=== PATIENT | female | born 1965 | race Caucasian/White ===

== ENCOUNTER → 2016-10-12 10:49 | Outpatient (CLI) | payer MEDICAID ==
[2016-10-12 11:41] LABS: HEMATOCRIT 35.9 % (36.0-48.0); HEMOGLOBIN 12.5 g/dL (12-16); LYMPHOCYTES 41.1 % (15-50); MCH 30.8 pg (26.0-34.0); MCHC 34.8 g/dL (31.0-37.0); MCV 88.4 fL (80.0-100.0); MEAN PLATELET VOLUME 11.2 fL (7.4-10.4); NEUTROPHILS 47.2 % (40-80); PLATELET COUNT 256 10x3/uL (130-400); RBC 4.06 10x6/uL (4.00-5.40); RDW 11.4 % (11.5-14.5); WBC 4.9 10x3/uL (4.8-10.8)
[2016-10-12 11:48] LABS: ALBUMIN 4.1 g/dL (3.4-5.0); ALKALINE PHOSPHATASE 165 U/L (46-116); ALT (SGPT) 27 U/L (10-68); BILIRUBIN - TOTAL 0.44 mg/dL (0.2-1.3); CALC OSMOLALITY 279 mosm/kg (275-300); CALCIUM 9.7 mg/dL (8.5-10.1); CARBON DIOXIDE 29.4 mmol/L (21.0-32.0); CHLORIDE - SERUM 103 mmol/L (98-107); CHOL - HDL RATIO 3.5 ratio (2.3-4.1); CHOLESTEROL, TOTAL 198 mg/dL (0-200); CREATININE - SERUM 0.8 mg/dL (0.6-1.3); GLUCOSE 97 mg/dL (74-106); HDL CHOLESTEROL 57 mg/dL (32-96); LDL CHOLESTEROL 127 mg/dL (0-100); LDL-HDL RATIO 2.2 ratio (1.5-3.5); POTASSIUM - SERUM 3.8 mmol/L (3.5-5.1); PROTEIN - SERUM 7.7 g/dL (6.4-8.2); SODIUM 140 mmol/L (136-145); THYROID STIMULATING HORMONE 0.02 uIU/mL (0.36-3.74); TRIGLYCERIDE 74 mg/dL (30-200); UREA NITROGEN 16 mg/dL (7-18); eGFR NON AFRICAN AMERICAN 80 mL/min (90-120)
== END | disposition home or self-care (01) ==
LOC: D.LAB 10:00
PROVIDERS: Family Medicine
DX: I10 Essential (primary) hypertension (principal); Z00.00 Encounter for general adult medical examination without abnormal findings; E03.9 Hypothyroidism, unspecified; E78.5 Hyperlipidemia, unspecified

== ENCOUNTER → 2016-11-01 08:46 | Outpatient (CLI) | payer MEDICAID | END | disposition home or self-care (01) | LOC: D.LAB 08:45 | DX: I10 Essential (primary) hypertension (principal); E03.9 Hypothyroidism, unspecified; E78.5 Hyperlipidemia, unspecified ==

== ENCOUNTER → 2017-08-21 11:14 | Outpatient (CLI) | payer MEDICAID ==
[2017-08-23 06:13] LABS: ENDOMYSIAL ANTIBODY IGA Negative (Negative)
[2017-08-23 13:16] LABS: ANTIGLIADIN IGA 3 units (0-19); ANTIGLIADIN IGG 5 units (0-19)
== END | disposition home or self-care (01) ==
LOC: D.LAB 10:15
PROVIDERS: Internal Medicine Gastroenterology
DX: D72.820 Lymphocytosis (symptomatic) (principal)

== ENCOUNTER → 2018-06-28 07:49 | Outpatient (CLI) | payer MEDICAID ==
[2018-06-28 08:56] LABS: ALBUMIN 3.9 g/dL (3.4-5.0); BILIRUBIN - DIRECT 0.13 mg/dL (0.00-0.30); BILIRUBIN - INDIRECT 0.31 mg/dL (0.00-1.00); BILIRUBIN - TOTAL 0.44 mg/dL (0.2-1.3); PROTEIN - SERUM 7.9 g/dL (6.4-8.2)
== END | disposition home or self-care (01) ==
LOC: D.US 07:30 → D.NM 08:30
PROVIDERS: Internal Medicine Gastroenterology
DX: R10.11 Right upper quadrant pain (principal); R11.0 Nausea

== ENCOUNTER → 2018-12-30 08:01 | Outpatient (CLI) | payer MEDICAID ==
[2018-12-30 08:59] LABS: ALBUMIN 3.9 g/dL (3.4-5.0); BILIRUBIN - DIRECT 0.08 mg/dL (0.00-0.30); BILIRUBIN - INDIRECT 0.23 mg/dL (0.00-1.00); BILIRUBIN - TOTAL 0.31 mg/dL (0.2-1.3); PROTEIN - SERUM 7.2 g/dL (6.4-8.2)
== END | disposition home or self-care (01) ==
LOC: D.US 08:01
PROVIDERS: ATTEND Internal Medicine Gastroenterology
DX: K76.0 Fatty (change of) liver, not elsewhere classified (principal)

== ENCOUNTER → 2019-01-13 10:30 | Outpatient (CLI) | payer MEDICAID ==
[2019-01-14 08:15] LABS: HEPATITIS C ANTIBODY <0.1 S/CO RAT (0.0-0.9)
[2019-01-15 14:11] LABS: ANA REFLEX - DIRECT Negative (Negative)
[2019-01-15 16:10] LABS: MITOCHONDRIAL ANTIBODY <20.0 Units (0.0-20.0); SMOOTH MUSCLE ABS (ACTIN) 17 Units (0-19)
== END | disposition home or self-care (01) ==
LOC: D.LAB 10:30
PROVIDERS: ATTEND Internal Medicine Gastroenterology
DX: K76.0 Fatty (change of) liver, not elsewhere classified (principal); R94.5 Abnormal results of liver function studies; R10.13 Epigastric pain; K59.09 Other constipation

== ENCOUNTER 2019-11-03 08:02 | Day surgery (SDC) | payer MEDICAID ==
[~2019-11-03] VITALS: Ht 157.5 cm; Wt 85.7 kg
--- NOTE | ~2019-11-03 | HP ---
PATIENT: MEGHA INIGUEZ MEDICAL RECORD: [id number] ACCOUNT: [id number] LOCATION:[facility] : [id number] ADMISSION DATE: 11/03/19 PCP: SUSSY MURCIA MD HISTORY AND PHYSICAL EXAMINATION HISTORY OF PRESENT ILLNESS: Megha is a 54-year-old female. She has sleep apnea and is on CPAP. She has had persistent problems with nasal obstruction and chronic rhinosinusitis. She is being admitted for septoplasty and sinus surgery. PAST MEDICAL HISTORY: Includes ulcers, hypertension, reactive airway disease, reflux, hypothyroidism, sleep apnea. PAST SURGICAL HISTORY: Includes a pelvic fracture, ectopic . SOCIAL HISTORY: She is not a smoker. CURRENT MEDICATIONS: Include Fosamax, Carafate, Pepcid, Flonase, hydrochlorothiazide, insulin, levothyroxine, Meloxicam, methocarbamol, Singulair, Protonix, ProAir, allopurinol, sumatriptan. PHYSICAL EXAMINATION: GENERAL: She is a good historian. FACE: Normal. EYES: Sclerae and conjunctivae are normal. EARS: Canals and TMs are normal. NOSE: Septal deviation, large turbinates. No mass, polyps or drainage. ORAL CAVITY AND OROPHARYNX: Tongue protrudes in midline. Pharynx is normal. NECK: No masses, no adenopathy. CHEST: Clear. CARDIOVASCULAR: Regular rate and rhythm, no murmur. EXTREMITIES: Normal. DIAGNOSTIC DATA: CT shows occlusion of right ostiomeatal complex, mucosal edema in the right sphenoid. IMPRESSION: Nasal obstruction, sleep apnea, septal deviation, turbinate hypertrophy and chronic sinusitis. PLAN: Septoplasty, bilateral inferior turbinate reduction, bilateral middle meatal antrostomies, right sphenoidotomy, right ethmoidectomy. 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
--- NOTE | ~2019-11-03 | OP ---
PATIENT NAME: MEGHA INIGUEZ MEDICAL RECORD: [id number] :65 LOCATION:[facility] ADMISSION DATE: SURGEON: MELA HUERTA MD DATE OF OPERATION: 11/03/2019 PREOPERATIVE DIAGNOSES: Chronic sinusitis, nasal obstruction, septal deviation, and turbinate hypertrophy. POSTOPERATIVE DIAGNOSES: Chronic sinusitis, nasal obstruction, septal deviation, and turbinate hypertrophy. PROCEDURES: Septoplasty, right sphenoidotomy, right anterior ethmoidectomy, bilateral middle meatal antrostomy, and bilateral inferior turbinate reduction. SURGEON: Mela Huerta MD ANESTHESIA: General orotracheal. BLOOD LOSS: 2 cc. SPECIMENS: Cultures from right maxillary sinus, tissue from the right anterior ethmoids and right lateral nasal wall and inferior turbinates. COMPLICATIONS: None. NASAL PACKING: Trammell splints bilaterally. COMPLICATIONS: None. DISPOSITION: Recovery stable. PROCEDURE NOTE: She was brought to operating room and placed in supine position, sedated and intubated by anesthesia. The table was turned 90 degrees. Head drape was applied and she was positioned for sinus surgery, prepped and draped in usual fashion. Both sides of the nose had been decongested with Afrin preoperatively. Using a headlight and nasal speculum, the anterior septum, floor of the nose inferior turbinates and root of middle turbinate were injected bilaterally with a total of less than 2 mL of 1% lidocaine with 1:100,000 epinephrine with a 1-1/2 inch 27-gauge needle and then 3 Afrin pledgets were placed in each side of the nose. After waiting for decongestion, all the Afrin pledgets on the right side were removed. The nose was examined with a 0-degree scope inferior turbinate was large, but normal middle meatus. The middle turbinate was really laterally, I could not really see in the middle meatus, superior meatus was normal. Nasal vault was normal. The nasopharynx was all normal. I could not see the sphenoid ostia directly. [place] was used to outfracture the inferior turbinate and gently lateralize the middle turbinate a little bit as well. The nose were again the 0-degree scope and see the sphenoid ostia was vertical and slit-like. A 2-mm Kerrison punch was inserted and facing inferiorly to take a bite directly inferiorly. This allowed better visualization, I could see the sphenoid and then another bite and then a small bite were taken inferomedially and inferiorly, which opened up the sinus very well. The 0-degree scope was inserted directly into the sphenoid sinus. It was completely clear and very large and normal. No drainage was noted. No mucosal edema, but really look like a normal sphenoid sinus. There was no bleeding there. I backed out of there, medialize the middle turbinate and then took down OPERATIVE REPORT [id number] MEGHA INIGUEZ MEETA the anterior ethmoids. There was mucosal thickening and polypoid changes. This was all sent for path but really no obvious infection. Then, the uncinate was fractured anteriorly. A curved olive tip suction was inserted in the maxillary sinus. Backbiter and a straight biter used to open up that ostia and was visualized with a 30-degree scope and it was edematous and inflamed, but again no obvious purulence, there was not flow, some saline was injected into the sinus with a curved olive tip suction and then that was all suctioned out into a trap and sent for cultures. The sinus was then irrigated repeatedly as was the ethmoids and the sphenoid with saline and then the left side was addressed and the middle turbinate was gently medialized and a curved olive tip suction was inserted, opened up that sinus pretty easily just with the olive tip suction and then irrigated it out and it opened up nicely. The rest of the nasal cavity exam on the left side was normal. Then, a left-sided Tony incision was made. Ipsilateral mucoperichondrial flap was elevated. Septal cartilaginous spur into the floor of the nose on the left side was removed. The bony portion was fractured off and the spur was bone fracture off and removed as well as a bony spur posteriorly inferiorly as well. With that the septum relaxed to the midline. Some relaxing incisions were made in the cartilage and the Tony incision was closed with interrupted 4-0 chromic. Both inferior turbinates were medialized with a freer. A [place] was used to take down the inferior redundant portion. Suction cautery stopped any bleeding and they were both outfractured with a [place] elevator. The nasopharynx was suctioned. The nose was examined carefully. There was really not much bleeding at all. Everything was clean and dry. The right maxillary sinus was irrigated one more time and then some mupirocin ointment was placed in the right anterior ethmoid cavity and the maxillary sinus with a large curved olive tip suction and then Trammell splints were placed bilaterally. Some mupirocin ointment and sutured to the anterior membranous septum with a 2-0 Prolene on a Axel needle. The pharynx was suctioned. The eyes were examined and normal. She was awakened, extubated, and transported to recovery in good condition. No complications. TRANSINT:[id number] Voice Confirmation ID: [id number] DOCUMENT ID: [id number] MELA HUERTA MD CC: [id number] DICTATION DATE: 11/03/19 1320 [facility] [employer] ADVISOR: 11/03/19 2258 [facility] 11/03/19 [place] [id number] [place] [address]
[2019-11-03 08:25] LABS: MCH 30.4 pg (26.0-34.0); MCHC 33.3 g/dL (31.0-37.0); MCV 91.1 fL (80.0-100.0); MEAN PLATELET VOLUME 10.5 fL (7.4-10.4); RBC 4.28 10x6/uL (4.00-5.40); RDW 12.5 % (11.5-14.5); WBC 5.2 10x3/uL (4.8-10.8)
[2019-11-03 08:32] LABS: CALC OSMOLALITY 282 mosm/kg (275-300); CALCIUM 9.7 mg/dL (8.5-10.1); CHLORIDE - SERUM 103 mmol/L (98-107); CREATININE - SERUM 0.8 mg/dL (0.6-1.3); GLUCOSE 114 mg/dL (74-106); POTASSIUM - SERUM 3.5 mmol/L (3.5-5.1); SODIUM 141 mmol/L (136-145); UREA NITROGEN 15 mg/dL (7-18); eGFR NON AFRICAN AMERICAN 79 mL/min (90-120)
[2019-11-03 09:53] VITALS: BP 121/59; Ht 157.5 cm; Wt 85.7 kg
--- NOTE | 2019-11-03 10:16 | NUR ---
NASAL SPRAY SENT TO OR-TAPED ON PT'S CHART
--- NOTE | 2019-11-03 14:36 | NUR ---
DC INSTRUCTIONS GIVEN TO PT. STATE UNDERSTANDING.
--- NOTE | 2019-11-03 15:23 | NUR ---
PT STATES FEELING LESS NAUSEATED. PT LEFT UNIT VIA WC AT 1520
== END 2019-11-03 15:20 | disposition home or self-care (01) ==
LOC: D.OPS 08:02 → D.PAN 09:15 → D.OPS 09:45
PROVIDERS: Anesthesiology; ATTEND Otolaryngology
DX: J32.9 Chronic sinusitis, unspecified (principal); J34.89 Other specified disorders of nose and nasal sinuses; J34.2 Deviated nasal septum; J34.3 Hypertrophy of nasal turbinates; I10 Essential (primary) hypertension; J45.909 Unspecified asthma, uncomplicated; K21.9 Gastro-esophageal reflux disease without esophagitis; E03.9 Hypothyroidism, unspecified; G47.30 Sleep apnea, unspecified; L98.499 Non-pressure chronic ulcer of skin of other sites with unspecified severity

== ENCOUNTER → 2020-01-12 11:13 | Outpatient (CLI) | payer MEDICAID ==
[2019-11-03 09:53] VITALS: BMI 34.6
== END | disposition home or self-care (01) ==
LOC: D.RAD 11:00
PROVIDERS: ATTEND Internal Medicine Gastroenterology
DX: R13.12 Dysphagia, oropharyngeal phase (principal); K21.9 Gastro-esophageal reflux disease without esophagitis

== ENCOUNTER → 2020-12-13 09:53 | Outpatient (CLI) | payer BC ==
[2020-12-13 10:49] LABS: ALBUMIN 3.8 g/dL (3.4-5.0); BILIRUBIN - DIRECT 0.05 mg/dL (0.00-0.30); BILIRUBIN - INDIRECT 0.32 mg/dL (0.00-1.00); BILIRUBIN - TOTAL 0.37 mg/dL (0.2-1.3); PROTEIN - SERUM 7.2 g/dL (6.4-8.2)
== END | disposition home or self-care (01) ==
LOC: D.LAB 09:53
PROVIDERS: Internal Medicine Gastroenterology
DX: K76.0 Fatty (change of) liver, not elsewhere classified (principal)